=== PATIENT | female | born 1980 | race Asian ===

== ENCOUNTER 2018-07-29 11:43 | Emergency (ER) | payer OTHER ==
[~2018-07-29] VITALS: Ht 162.6 cm; Wt 77.0 kg
--- NOTE | 2018-07-29 12:21 | NUR ---
PT TO ROOM FROM LOBBY. STANFORD HARDING AT BEDSIDE TO ASSESS PT.
--- NOTE | 2018-07-29 12:49 | NUR ---
pt presents to ED with c/o intermittent rectal pain x 1 year that is intermittent but worse in last week. Anal exam performed by STANFORD, RN at bedside for exam. pt is 20 weeks 1 day , calculated from LMP reported 03/10/18. pt denies vaginal bleeding/discharge/cramping. pt denies abd/chest pain, denies sob, denies vision changes, reports occaisional headache (STANFORD Murguia aware). Pt reports fatigue, present since first month of . pt a&ox4, resps even and unlabored. sinus tach rate 100s on radiation monitor, no ectopy. bp/spo2/cardiac monitors in place. EDPA aware of initial bp, repeat bp taken 125/78. L&D department called to perform check at EDPA request. Pt symptomology reviewed with L&D RN; L&D RN to perform monitoring in ED. pt a&o, resps even and unlabored. call light in reach. at bedside. pt updated with POC, demonstrates understanding.
[2018-07-29 13:01] LABS: BASOPHILS # (AUTO) 0.02 x10^3/uL (0-0.1); BASOPHILS % (AUTO) 0 % (0-1); EOSINOPHILS # (AUTO) 0.02 x10^3/uL (0-0.4); EOSINOPHILS % (AUTO) 0 % (1-7); LYMPHOCYTES # (AUTO) 1.26 x10^3/uL (1-3.4); LYMPHOCYTES % (AUTO) 13 % (22-44); MD NO; MEAN CORPUSCULAR HEMOGLOBIN 30.3 pg (27.0-34.8); MEAN CORPUSCULAR HGB CONC 34.9 g/dL (32.4-35.8); MEAN CORPUSCULAR VOLUME 86.7 fL (80-100); MEAN PLATELET VOLUME 8.6 fL (7.4-10.4); MONOCYTES % (AUTO) 3 % (2-9); NEUTROPHILS # (AUTO) 7.94 x10^3/uL (1.8-6.8); NEUTROPHILS % (AUTO) 83 % (42-75); PLATELET COUNT 279 x10^3/uL (130-400); RED BLOOD COUNT 3.89 x10^6/uL (3.82-5.3); RED CELL DISTRIBUTION WIDTH 13.9 % (9.6-15.2)
--- NOTE | 2018-07-29 13:10 | NUR ---
L&D HUGO Montoya at bedside for assessment.
[2018-07-29 13:13] LABS: ALBUMIN 2.8 g/dL (3.4-5.0); ANION GAP 4 mmol/L (5-15); CALCIUM 8.8 mg/dL (8.5-10.1); CHLORIDE 110 mmol/L (98-107); CREATININE 0.59 mg/dL (0.55-1.02)
--- NOTE | 2018-07-29 13:15 | NUR ---
EDMD Sahm at bedside to explain POC.
--- NOTE | 2018-07-29 13:42 | NUR ---
urine collected and sent to lab. awaiting ua results and dispo. per L&D RN, HR within normal limits.
[2018-07-29 13:48] LABS: CULTURE INDICATED? YES; MICROSCOPIC INDICATED
--- NOTE | 2018-07-29 14:25 | NUR ---
STANFORD Murguia at bedside to update pt with results and POC.
[2018-07-29 14:37] VITALS: BP 111/61
--- NOTE | 2018-07-29 14:41 | NUR ---
pt given dc instructions and script. pt educated regarding rx for macrobid. pt a&o, resps even and unlabored. pt amb to dc desk with steady gait accompanied by . no complaint at time of dc.
--- NOTE | 2018-07-29 15:00 | NUR ---
LATE ENTRY FOR 1500: PT LEFT PRESCRIPTION FOR MACROBID IN ROOM. PT CALLED, NO ANSWER. MESSAGE LEFT TO SAFETY AND SECURITY OFFICER PRESCRIPTION LEFT.
== END 2018-07-29 14:42 | disposition home or self-care (01) ==
LOC: ED 13:57
DX: O23.12 Infections of bladder in pregnancy, second trimester (principal); K64.8 Other hemorrhoids; Z3A.23 23 weeks gestation of pregnancy
CPT/HCPCS: 36415; 80048; 81001; 82040; 85025; 87086; 99283

== ENCOUNTER 2018-10-19 20:52 | Outpatient (CLI) | payer OTHER, MEDICAID ==
[~2018-10-19] VITALS: Ht 162.6 cm; Wt 81.0 kg
== END 2018-10-19 21:36 | disposition home or self-care (01) ==
LOC: LDOP 20:52
PROVIDERS: ATTEND Obstetrics & Gynecology
DX: O09.523 Supervision of elderly multigravida, third trimester (principal); Z3A.33 33 weeks gestation of pregnancy
CPT/HCPCS: 59025; 99211; G0463

== ENCOUNTER 2018-11-03 21:15 | Outpatient (CLI) | payer OTHER, MEDICAID ==
[~2018-11-03] VITALS: Ht 165.1 cm; Wt 88.6 kg
[2018-11-03 21:59] VITALS: BP 130/83
[2018-11-03 22:00] LABS: MICROSCOPIC NOT IND
[2018-11-03 22:04] LABS: CULTURE INDICATED? NO
== END 2018-11-03 22:59 | disposition home or self-care (01) ==
LOC: LDOP 21:15
PROVIDERS: ATTEND Obstetrics & Gynecology
DX: O42.913 Preterm premature rupture of membranes, unspecified as to length of time between rupture and onset of labor, third trimester (principal); Z3A.34 34 weeks gestation of pregnancy
CPT/HCPCS: 59025; 81003; 89060; 99211; G0463; Q0114

== ENCOUNTER 2018-11-30 00:09 | Inpatient (IN) | payer OTHER, MEDICAID ==
[~2018-11-30] VITALS: Ht 162.6 cm; Wt 90.9 kg
[2018-11-30 00:46] LABS: MICROSCOPIC AUTO
[2018-11-30 00:53] LABS: AMPHETAMINE SCREEN, URINE Negative (Negative); BARBITURATE SCREEN, URINE Negative (Negative); BENZODIAZEPINE SCREEN, URINE Negative (Negative); CANNABINOID SCREEN, URINE Negative (Negative); COCAINE SCREEN, URINE Negative (Negative); METHADONE SCREEN, URINE Negative (Negative); OPIATE SCREEN, URINE Negative (Negative)
[2018-11-30] MEDS ORDERED: NEWBORN KIT ONE (01:36)
[2018-11-30] MEDS ORDERED: OXYTOCIN 30U/ 0.9% NaCL 500ML 500 ML ONE ×2 (01:36→08:04)
[2018-11-30] MEDS ORDERED: MISOPROSTOL 200 MCG TABLET ONE (01:36)
[2018-11-30] MEDS ORDERED: LACTATED RINGERS 1,000 ML IV SCH (01:46)
[2018-11-30] MEDS ORDERED: OXYTOCIN 30U/ 0.9% NaCL 500ML 500 ML IV PRN (01:46)
[2018-11-30] MEDS ORDERED: OXYTOCIN 30U/ 0.9% NaCL 500ML 500 ML IV ONE (01:46)
[2018-11-30] MEDS ORDERED: D5%-LACTATED RINGERS 1,000 ML IV SCH (01:46)
[2018-11-30] MEDS ORDERED: FENTANYL/BUPIV./NS/PF 250 ML EPIDCONT SCH ×3 (02:00→03:25)
[2018-11-30] MEDS ORDERED: FENTANYL PF 100 MCG/2ML IVPush PRN (02:00)
[2018-11-30] MEDS ORDERED: METOCLOPRAMIDE 5 MG/ML, 2ML IVPush PRN (02:00)
[2018-11-30] MEDS ORDERED: FENTANYL PF 100 MCG/2ML IV PRN (02:00)
[2018-11-30] MEDS ORDERED: SODIUM CITRATE/CITRIC ACID 15 ML UDC PO PRN (02:00)
[2018-11-30 02:03] VITALS: BP 126/83
[2018-11-30 02:05] LABS: BASOPHILS # (AUTO) 0.03 x10^3/uL (0-0.1); BASOPHILS % (AUTO) 0 % (0-1); EOSINOPHILS # (AUTO) 0.04 x10^3/uL (0-0.4); EOSINOPHILS % (AUTO) 0 % (1-7); LYMPHOCYTES # (AUTO) 2.28 x10^3/uL (1-3.4); LYMPHOCYTES % (AUTO) 18 % (22-44); MD NO; MEAN CORPUSCULAR HEMOGLOBIN 30.3 pg (27.0-34.8); MEAN CORPUSCULAR HGB CONC 33.8 g/dL (32.4-35.8); MEAN CORPUSCULAR VOLUME 89.7 fL (80-100); MEAN PLATELET VOLUME 9.3 fL (7.4-10.4); MONOCYTES # (AUTO) 0.59 x10^3/uL (0.2-0.8); MONOCYTES % (AUTO) 5 % (2-9); NEUTROPHILS # (AUTO) 9.84 x10^3/uL (1.8-6.8); NEUTROPHILS % (AUTO) 77 % (42-75); PLATELET COUNT 265 x10^3/uL (130-400); RED BLOOD COUNT 4.16 x10^6/uL (3.82-5.3)
[2018-11-30] MEDS ORDERED: ACETAMINOPHEN 325 MG TABLET ONE ×2 (02:37→20:21)
[2018-11-30] MEDS ORDERED: BUPIVACAINE 0.25% ONE (02:40)
[2018-11-30] MEDS: LACTATED RINGERS 1,000 ML IV SCH ×3 (03:25→19:25)
[2018-11-30] MEDS ORDERED: ONDANSETRON 2MG/ML, 2ML IVPush PRN (03:30)
[2018-11-30] MEDS ORDERED: NALOXONE 0.4 MG/ML, 1ML IVPush PRN (03:30)
[2018-11-30] MEDS ORDERED: EPHEDRINE 50 MG/ML, 1ML IVPush PRN (03:30)
[2018-11-30] MEDS ORDERED: DIPHENHYDRAMINE 50 MG/ML, 1ML IVPush PRN (03:30)
[2018-11-30] MEDS ORDERED: LACTATED RINGERS 1,000 ML IVBOLUS PRN (03:30)
[2018-11-30] MEDS ORDERED: OXYTOCIN 30U/ 0.9% NaCL 500ML 500 ML IV SCH (07:23)
[2018-11-30] MEDS: OXYTOCIN 30U/ 0.9% NaCL 500ML 500 ML IV SCH ×2 (07:23→17:23)
[2018-11-30] MEDS ORDERED: MISOPROSTOL 200 MCG TABLET PR PRN (07:30)
[2018-11-30] MEDS ORDERED: DOCUSATE 100 MG CAPSULE PO PRN (07:30)
[2018-11-30] MEDS ORDERED: OXYcodone IR 5MG TABLET PO PRN ×2 (07:30)
[2018-11-30] MEDS ORDERED: IBUPROFEN 600 MG TABLET ONE (08:03)
[2018-11-30] MEDS: IBUPROFEN 600 MG TABLET PO PRN ×2 (08:06→16:25)
[2018-11-30] MEDS: PRENATAL VIT/IRON/FA 1 EACH TABLET PO SCH (09:00)
[2018-11-30 09:30] VITALS: BP 135/89
[2018-11-30 17:39] LABS: BASOPHILS # (AUTO) 0.03 x10^3/uL (0-0.1); BASOPHILS % (AUTO) 0 % (0-1); EOSINOPHILS # (AUTO) 0.02 x10^3/uL (0-0.4); EOSINOPHILS % (AUTO) 0 % (1-7); LYMPHOCYTES # (AUTO) 1.76 x10^3/uL (1-3.4); LYMPHOCYTES % (AUTO) 12 % (22-44); MD NO; MEAN CORPUSCULAR HEMOGLOBIN 29.7 pg (27.0-34.8); MEAN CORPUSCULAR HGB CONC 32.9 g/dL (32.4-35.8); MEAN CORPUSCULAR VOLUME 90.4 fL (80-100); MEAN PLATELET VOLUME 9.7 fL (7.4-10.4); MONOCYTES # (AUTO) 0.84 x10^3/uL (0.2-0.8); MONOCYTES % (AUTO) 6 % (2-9); NEUTROPHILS # (AUTO) 12.02 x10^3/uL (1.8-6.8); NEUTROPHILS % (AUTO) 82 % (42-75); PLATELET COUNT 240 x10^3/uL (130-400); RED BLOOD COUNT 3.75 x10^6/uL (3.82-5.3); RED CELL DISTRIBUTION WIDTH 15.1 % (9.6-15.2)
[2018-11-30 20:00] VITALS: BP 141/90
[2018-12-01 00:30] VITALS: BP 113/74
[2018-12-01] MEDS: IBUPROFEN 600 MG TABLET PO PRN ×2 (00:42→08:35)
[2018-12-01] MEDS: OXYTOCIN 30U/ 0.9% NaCL 500ML 500 ML IV SCH (03:23)
[2018-12-01] MEDS: LACTATED RINGERS 1,000 ML IV SCH (03:25)
[2018-12-01 04:00] VITALS: BP 117/79
[2018-12-01] MEDS ORDERED: ACETAMINOPHEN 325 MG TABLET ONE (05:04)
[2018-12-01] MEDS ORDERED: ACETAMINOPHEN 325 MG TABLET PO PRN (07:00)
[2018-12-01] MEDS ORDERED: IBUP-1222 PO (07:39)
[2018-12-01 08:26] VITALS: BP 117/77
[2018-12-01] MEDS: PRENATAL VIT/IRON/FA 1 EACH TABLET PO SCH (08:35)
[2018-12-01] MEDS ORDERED: HYDR25CA PO (09:07)
== END 2018-12-01 16:49 | disposition home or self-care (01) | DRG 807 ==
LOC: LDOP 00:09 → LDIP 01:35 → 2NW 09:12
PROVIDERS: ADMIT Obstetrics & Gynecology; ATTEND Obstetrics & Gynecology
PROC: 10E0XZZ Delivery of Products of Conception, External Approach (ICD-10-PCS; principal; 2018-11-30)
PROC: 3E0R3BZ Introduction of Anesthetic Agent into Spinal Canal, Percutaneous Approach (ICD-10-PCS; 2018-11-30)
PROC: 3E0R3BZ Introduction of Anesthetic Agent into Spinal Canal, Percutaneous Approach (ICD-10-PCS; 2018-11-30)
DX: O64.0XX0 Obstructed labor due to incomplete rotation of fetal head, not applicable or unspecified (principal); Z37.0 Single live birth; O76 Abnormality in fetal heart rate and rhythm complicating labor and delivery; Z88.2 Allergy status to sulfonamides; Z3A.37 37 weeks gestation of pregnancy
CPT/HCPCS: 36415; 80307; 81001; 85025; 86850; 86900; 87086; 89060; G0378; J3490; J2590; J3010; J7120; Q0114

== ENCOUNTER 2019-05-20 16:06 | Outpatient (CLI) | payer MEDICAID ==
[~2019-05-20 16:06] MED LIST: HYDR25CA PO; IBUP-1222 PO
== END 2019-05-20 23:59 | disposition home or self-care (01) ==
LOC: CVU 16:06
PROVIDERS: ATTEND Internal Medicine Cardiovascular Disease
DX: I08.1 Rheumatic disorders of both mitral and tricuspid valves (principal); I49.3 Ventricular premature depolarization
CPT/HCPCS: 93306

== ENCOUNTER 2019-06-03 11:31 | Emergency (ER) | payer MEDICAID ==
[~2019-06-03] VITALS: Ht 162.6 cm; Wt 80.0 kg
[2019-06-03] MEDS ORDERED: SODIUM CHLORIDE FLUSH 10ML SYR IVF ONE (12:00)
[2019-06-03] MEDS ORDERED: SODIUM CHLORIDE 0.9% 1,000ML IVBOLUS ONE (12:00)
[2019-06-03 12:12] LABS: BASOPHILS # (AUTO) 0.03 x10^3/uL (0-0.1); BASOPHILS % (AUTO) 1 % (0-1); EOSINOPHILS # (AUTO) 0.06 x10^3/uL (0-0.4); EOSINOPHILS % (AUTO) 1 % (1-7); LYMPHOCYTES # (AUTO) 1.42 x10^3/uL (1-3.4); LYMPHOCYTES % (AUTO) 24 % (22-44); MD NO; MEAN CORPUSCULAR HEMOGLOBIN 28.6 pg (27.0-34.8); MEAN CORPUSCULAR HGB CONC 33.9 g/dL (32.4-35.8); MEAN CORPUSCULAR VOLUME 84.3 fL (80-100); MEAN PLATELET VOLUME 8.7 fL (7.4-10.4); MONOCYTES # (AUTO) 0.29 x10^3/uL (0.2-0.8); MONOCYTES % (AUTO) 5 % (2-9); NEUTROPHILS # (AUTO) 4.13 x10^3/uL (1.8-6.8); NEUTROPHILS % (AUTO) 70 % (42-75); PLATELET COUNT 326 x10^3/uL (130-400); RED BLOOD COUNT 4.74 x10^6/uL (3.82-5.3); RED CELL DISTRIBUTION WIDTH 14.5 % (9.6-15.2)
[2019-06-03 12:23] LABS: ALBUMIN 3.6 g/dL (3.4-5.0); ANION GAP 8 mmol/L (5-15); CALCIUM 9.1 mg/dL (8.5-10.1); CHLORIDE 108 mmol/L (98-107)
[2019-06-03 12:29] LABS: ALANINE AMINOTRANSFERASE 32 U/L (12-78); ALKALINE PHOSPHATASE 54 U/L (45-117); BILIRUBIN,TOTAL 0.4 mg/dL (0.2-1.0); CREATININE 0.68 mg/dL (0.55-1.02); TROPONIN I < 0.015 ng/mL (0.000-0.045)
--- NOTE | 2019-06-03 12:30 | NUR ---
TO BATHROOM VIA W/C. UPON RETURN ORTHOSTATICS BY TECH. IV BOLUS TO BE GIVEN
[2019-06-03 12:35] LABS: T4 (THYROXINE) 9.7 mcg/dL (4.8-13.9)
[2019-06-03 13:05] LABS: MICROSCOPIC INDICATED
--- NOTE | 2019-06-03 13:05 | NUR ---
TASK RN NOTE: CALL TO IMAGING REGARDING CXR RESULTS. AWAITING REPORT TO POPULATE. NAD NOTED IN PT AT THIS TIME. RESPIRATIONS EVEN AND UNLABORED. SIDE RAIL UP, CALL LIGHT IN REACH.
[2019-06-03 13:26] LABS: CULTURE INDICATED? YES
--- NOTE | 2019-06-03 14:38 | NUR ---
RE-EVALUATING PT
[2019-06-03 15:08] VITALS: BP 133/84
== END 2019-06-03 15:10 | disposition home or self-care (01) ==
LOC: ED 13:14
DX: R00.2 Palpitations (principal); R55 Syncope and collapse; F32.1 Major depressive disorder, single episode, moderate; T44.7X5A Adverse effect of beta-adrenoreceptor antagonists, initial encounter; Z87.891 Personal history of nicotine dependence; Y92.89 Other specified places as the place of occurrence of the external cause
CPT/HCPCS: 36415; 71045; 80053; 81001; 83605; 83735; 84436; 84443; 84484; 84703; 85025; 87086; 87147; 93005; 99284; J7030